=== PATIENT | female | born 1985 | race Two or more races ===

== ENCOUNTER 2016-06-05 14:35 | Emergency (ER) | payer OTHER, MEDICAID ==
--- NOTE | 2016-06-13 19:43 | ER ---
ADMIT: 06/05/2016 RM/LOC: ER [facility] MR#: [id number] [address] [id number] DOMINGO LUDWIG [address] [place] [address] CELL Emergency Room Report SEX: F AGE: 30 : 1985 DATE: 06/05/2016 ADDENDUM: This patient comes to the ER because she has had some vaginal bleeding that started yesterday. She is currently 6-1/2 weeks by her last menstrual period. She did have a positive test in the doctor's office. She has minimal amount of pain that seems to come and go and feels similar to having menstrual cramps and she has a small amount of bleeding. On physical exam, she is mildly tender in the right adnexa. There is no rebound tenderness or guarding. Small amount of blood in the vagina, the cervix is closed. Ultrasound showed a 4-week IUP and a small corpus luteum cyst on the right side. DIAGNOSES: 1. First trimester bleed. 2. Threatened . We will have the patient follow up with Dr. Mcgrath on Tuesday to redo her beta quant. Today in the ER, it was 852. Please see my T-sheet. KIMBER Patel / Bayron Ontiveros MD / shahriarl JOB #: [id number] CC: Bayron Ontiveros MD, Attending Physician
== END 2016-06-05 17:22 | disposition home or self-care (01) ==
LOC: ER 14:35
DX: O20.0 Threatened abortion (principal)